=== PATIENT | male | born 1945 | race Caucasian/White ===

== ENCOUNTER 2017-05-02 20:11 | Inpatient (IN) | payer OTHER ==
[~2017-05-02] VITALS: Ht 170.2 cm; Wt 66.3 kg
--- NOTE | 2017-05-02 21:26 | DIAGNOSTIC IMAGING REPORT ---
PROCEDURE: XR CHEST 1 VIEW INDICATION: Altered level of consciousness. TECHNIQUE: Portable AP view (2114 hours). COMPARISON: None. FINDINGS: Findings suggest moderate hiatal hernia. Lungs are clear. Heart is normal. Thorax is normal. IMPRESSION: 1. Findings suggest moderate hiatal hernia. 2. Otherwise negative chest.
--- NOTE | 2017-05-02 22:47 | DIAGNOSTIC IMAGING REPORT ---
PROCEDURE: CT HEAD WITHOUT CONTRAST INDICATION: WEAKNESS TECHNIQUE: Noncontrast axial images with sagittal and coronal reformations. COMPARISON: None. FINDINGS: There is severe old small vessel disease of the white matter with an old 1.5 cm infarct in the right parietal lobe. Moderate atrophic changes. Brain and ventricles are otherwise normal. No evidence of an acute process or hemorrhage. Sinuses and mastoids are normal. Carotid and vertebral vascular calcifications IMPRESSION: 1. 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 2. There is a 2 cm old right parietal infarct. 3. Otherwise a head CT. 4. Findings discussed with Dr. bK Smallwood at [address] scans at this facility use dose modulation, iterative reconstruction, and/or weight-based dosing when appropriate to reduce radiation dose to as low as reasonably achievable.
--- NOTE | 2017-05-02 22:47 | DIAGNOSTIC IMAGING REPORT ---
PROCEDURE: CT HEAD WITHOUT CONTRAST INDICATION: WEAKNESS TECHNIQUE: Noncontrast axial images with sagittal and coronal reformations. COMPARISON: None. FINDINGS: There is severe old small vessel disease of the white matter with an old 1.5 cm infarct in the right parietal lobe. Moderate atrophic changes. Brain and ventricles are otherwise normal. No evidence of an acute process or hemorrhage. Sinuses and mastoids are normal. Carotid and vertebral vascular calcifications IMPRESSION: 1. 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 2. There is a 2 cm old right parietal infarct. 3. Otherwise a head CT. 4. Findings discussed with Dr. Kb Smallwood at [address] scans at this facility use dose modulation, iterative reconstruction, and/or weight-based dosing when appropriate to reduce radiation dose to as low as reasonably achievable.
--- NOTE | 2017-05-03 01:07 | ED ORDER SUMMARY ---
..... Patient: AGUEDA CARRION OrderSheet Merg[facility] With [facility] VisitID: [id number] [address] [place] [address] 71y, M Registration Date/Time: 05/02/2017 ORDER SHEET Weight: 80.7 kg (stated) Allergies: No Known Drug Allergy GENERAL ORDERS: Chest 1V Urgent (20:52 05/02/2017 Destinee SKAGGS) (Ack 20:54 LMuller) (21:53 LMuller) Sales Operations Coordinator (Continuous) (20:53 05/02/2017 Destinee SKAGGS) (20:57 MCook R.N.) Cardiac Panel Stat (:53 05/02/2017 Destinee SKAGGS) (Ack 20:54 LMuller) (20:54 LMuller) UA-Culture if indicated Urgent (20:53 05/02/2017 Destinee SKAGGS) (Ack 20:54 LMuller) (0:40 MCook R.N.) TSH Urgent (20:53 05/02/2017 Destinee SKAGGS) (Ack 20:54 LMuller) (20:54 LMuller) Urine Drug Screen Urgent (20:53 05/02/2017 Destinee SKAGGS) (Ack 20:54 LMuller) (0:40 MCook R.N.) Pulse oximeter (20:53 05/02/2017 Destinee SKAGGS) (20:57 MCook R.N.) EKG - ER Stat (20:53 05/02/2017 Destinee SKAGGS) (Ack 20:54 LMuller) (21:02 MCook R.N.) CT Head wo Cont Urgent (21:33 05/02/2017 Madelyn SKAGGS) (Ack 21:39 LMuller) (21:53 LMuller) Vitals - Orthostatic (22:43 05/02/2017 Madelyn SKAGGS) (23:26 MCook R.N.) MEDICATION ORDERS: IV FLUIDS: IV NS : initial bolus 500 mL (1000 mL/hr), then 150 mL/hr for 4h (NOW); Routine (20:52 05/02/2017 Destinee SKAGGS) (Ack 21:14 JQuivey R.NAbhinav) (21:21 Herman Kennedy) (Cancelled: Other23:12 Madelyn SKAGGS) IV NS : initial bolus 1000 mL (1000 mL/hr), then 1000 mL/hr for X2 (NOW); Urgent (23:12 05/02/2017 Madelyn SKAGGS) (23:27 Herman Kennedy) ORDER SHEET NOTES: [Electronically signed by Que Carrasco R.N. (04:10 05/03/2017)] [Electronically signed by Kb Smallwood MD (09:42 05/03/2017)] [Electronically locked/signed by Que Carrasco R.N. (04:10 05/03/2017)]
--- NOTE | 2017-05-03 01:07 | ED CLINICAL REPORT ---
Clinical Report - [facility] [address] [place] [address] 05/02/2017 20:12 Patient: AGUEDA CARRION Time Seen: 21:00. Arrived- By private vehicle. Historian- patient and son. History limited by confusion. Physical Exam limited by confusion. HISTORY OF PRESENT ILLNESS Chief Complaint: WEAKNESS. The patient has had new onset of generalized weakness. He has had difficulty walking. He has had a recent fall. This was associated with loss of consciousness. This started today and is still present. It was abrupt in onset and has been constant. The patient is usually alert, but disoriented to time and alert but confused and usually walks only with assistance. (patient has a history of a prior stroke with chronic left-sided weakness. He moved in with his son here in October from [place]. His son was gone for 2 nights and when he returned home in the middle of the night found his father on the bathroom floor. The patient reports that he had an accident, had bent over to clean that up and stumbled hitting his head. He thinks he may have lost consciousness but is not sure. His son is not certain how long the patient may have been on the floor. His son reports that normally the patient is able to ambulate with his assistance. However, since this event he says that the patient tends to fall backwards and lists to the right.). REVIEW OF SYSTEMS No chills, fever, sweats, calf pain or chest pain. No cough, difficulty breathing, pedal edema, palpitations or abdominal pain. No black stools, bloody stools, constipation, diarrhea or nausea. No vomiting or urinary problems. All systems otherwise negative, except as recorded above. PAST HISTORY ( PCP - none). Problems: CVA - Cerebrovascular Accident. Hypertension. Additional Surgeries: Nasal surgery. Medications: Atenolol 100 mg PO QD. Allergies: No Known Drug Allergy. SOCIAL HISTORY Smoker- current status unknown. Alcohol use. (rare - none for 6 months). He lives with a family member. Has good social support. FAMILY HISTORY Stroke in first-degree relative (mother); cancer in first-degree relative (father and sibling). ADDITIONAL NOTES The nursing notes have been reviewed. PHYSICAL EXAM Vital Signs: 05/02/2017 20:15 BP: 136/91. HR: 92. RR: 14. O2 saturation: 99%. Temp: 98.3 F. Pain level now: 0/10. Appearance: Alert. He is confused. Head: Head atraumatic. Eyes: Pupils equal, round and reactive to light. ENT: Pharynx normal. Neck: Normal inspection. Neck supple. CVS: Normal heart rate and rhythm. Heart sounds normal. Respiratory: No respiratory distress. Breath sounds normal. Abdomen: Soft and nontender. No organomegaly. Back: Normal inspection. No CVA tenderness. Skin: Skin warm and dry. Normal skin color. Normal skin turgor. Extremities: Bilateral mild pitting edema of the lower extremities. Extremities exhibit normal ROM. No calf tenderness. Neuro: Moderately altered mental status: confused. Moderate left-sided facial weakness. He has had weakness of the left arm (severe) and left leg (severe). LABS, X-RAYS, AND EKG EKG: Normal EKG. Rate: 82. Prior EKG unavailable. The study has been independently viewed by me. CT Head: A small infarction in the right parietal lobe is present (old). White matter disease is present. There is atrophy is present. The study was interpreted contemporaneously by me and discussed with the radiologist. Laboratory Tests: UA-Culture if indicated: (VEENA: 05/03/2017 00:40) ( MsgRcvd 05/03/2017 00:56) Final results Test Result Flag Units (Reference) URINE COLOR YELLOW URINE APPEARANCE CLEAR URINE GLUCOSE NEGATIVE (NEGATIVE) URINE BILIRUBIN NEGATIVE (NEGATIVE) URINE KETONE NEGATIVE (NEGATIVE) URINE SPECIFIC GRAVITY 1.025 (1.010-1.030) URINE PH 5.5 (5.0-8.0) URINE PROTEIN NEGATIVE (NEGATIVE) URINE UROBILINOGEN 0.2 EU/dL (0.2-1.0) URINE NITRITE NEGATIVE (NEGATIVE) URINE BLOOD NEGATIVE (NEGATIVE) URINE LEUK ESTERASE NEGATIVE (NEGATIVE) URINE RBC 0-1 rbc/hpf (0-1) URINE WBC 1-3 wbc/hpf (0-1) URINE EPITHELIAL CELLS 1-3 EPI/hpf (0-5) URINE BACTERIA MODERATE (2+ TO 3+) (NONE SEEN) URINE COMMENT CULTURE INDICATED URINE CULTURES ARE SET-UP BASED ON THE FOLLOWING CRITERIA:POSITIVE NITRITEPOSITIVE LEUKOCYTE ESTERASEGREATER THAN 10 WHITE BLOOD CELLSMODERATE (2+) OR GREATER BACTERIA Urine Drug Screen: (VEENA: 05/03/2017 00:40) ( [facility] [place] 05/03/2017 00:58) Final results Test Result Flag Units (Reference) AMPHETAMINE/METHAMPHETAMINE NEGATIVE (NEGATIVE) BARBITURATE NEGATIVE (NEGATIVE) BENZODIAZEPINE NEGATIVE (NEGATIVE) CANNABINOID NEGATIVE (NEGATIVE) COCAINE NEGATIVE (NEGATIVE) ECSTASY NEGATIVE (NEGATIVE) METHADONE NEGATIVE (NEGATIVE) OPIATE NEGATIVE (NEGATIVE) The urine drug screen is a qualitative screening test fordrug overdose and abuse. All screen results should beconsidered as presumptive.Drugs screened for are as follows:BenzodiazepinesCocaineAmphetamines/MetamphetaminesTHC (Tetrahydrocannabinol)OpiatesBarbituratesEcstasyMethadonePositive results are unconfirmed. For confirmation, notifythe lab for the specimen to be sent to the reference lab.All confirmations must be performed by a differentmethodology.The ingestion of natural herbal and plant productscontaining Ephedra/Ephedra metabolites can produce in urineone or more substances capable of cross reacting withamphetamine/methamphetamine immunoassays. These testsprovide a preliminary result only. A more specificalternative chemical method must be used to obtain aconfirmed analytical result. CBC w Diff: (VEENA: 05/02/2017 20:24) ( [facility] 05/02/2017 21:02) Final results Test Result Flag Units (Reference) WHITE BLOOD COUNT 12.3 H K/uL (4.5-11.5) RED BLOOD COUNT 4.95 M/uL (4.50-5.90) HEMOGLOBIN 13.5 gm/dL (13.5-17.5) HEMATOCRIT 41.0 % (41.0-53.0) MEAN CELL VOLUME 83 fL (80-100) MEAN CORPUSCULAR HGB 27 pg (26-34) MEAN CORPUSCULAR HGB CONC 33 g/dL (31-37) RED CELL DISTRIBUTION WIDTH 14.1 % (11.6-14.8) PLATELET COUNT 205 K/uL (150-400) NEUTROPHIL % 83.7 H % (50-75) LYMPH % 6.9 L % (25-40) MONO % 9.2 % (3-14) EOSINOPHIL % 0.1 % (0-4) BASOPHIL % 0.1 % (0-2) TSH: (VEENA: 05/02/2017 20:24) ( MsgRcvd 05/02/2017 21:29) Final results Test Result Flag Units (Reference) THYROID STIMULATING HORMONE 0.779 uIU/mL (0.30-3.74) CHEM 13 PANEL: (VEENA: 05/02/2017 20:24) ( [facility] 05/02/2017 22:36) Final results Test Result Flag Units (Reference) GLUCOSE 98 mg/dL (70-110) BUN 27 H mg/dL (7-18) CREATININE 1.3 mg/dL (0.6-1.3) Estimated GFR 57.51 mL/min Estimated GFR- >60 mL/min Note: Persistent reduction over 3 months in eGFR<60 mL/min/1.73 m2 defines CKD. Patients with eGFR values>=60 mL/min/1.73 m2 may also have CKD if evidence ofpersistent proteinuria. Additional information may be foundat www.kidney.org. SODIUM 140 mmol/L (136-145) POTASSIUM 4.6 mmol/L (3.5-5.1) CHLORIDE 103 mmol/L (98-107) CARBON DIOXIDE 30 mmol/L (21-32) CALCIUM 9.9 mg/dL (8.5-10.1) TOTAL PROTEIN 7.8 g/dL (6.4-8.2) ALBUMIN 3.6 g/dL (3.3-5.0) BILIRUBIN, TOTAL 0.5 mg/dL (0.0-1.0) ALKALINE PHOSPHATASE 116 U/L (46-116) AST (SGOT) 104 H U/L (15-37) ALT (SGPT) 37 U/L (12-78) MAGNESIUM 2.3 mg/dL (1.8-2.4) TROPONIN I <0.05 ng/mL (0.00-1.5) TROPONIN REFERENCE RANGE:<0.1 NEGATIVE0.1-1.5 INDETERMINANT>1.5 POSITIVE CPK 517 H U/L (24-260) CK-MB 46.0 H ng/mL (0.5-3.2) %CKMB 1.8 % (0.0-4.0) . PROGRESS AND PROCEDURES Discussed case with hospitalist, (Joyce - he saw the patient in the ER). Reviewed test results and need for additional work-up. Agreed upon treatment plan, need for patient follow-up and decision to admit. Patient/family counseled. Old medical records ordered. Old records unavailable. CLINICAL IMPRESSION Changed mental status. Leukocytosis (mild). Possible nontraumatic cerebrovascular accident. asymptomatic bacteruria. (Electronically signed by Kb Smallwood MD 05/03/2017 9:42)
--- NOTE | 2017-05-03 01:07 | ED ORDER SUMMARY ---
..... Patient: AGUEDA CARRION OrderSheet [facility] VisitID: [id number] [address] [place] [address] 71y, M Registration Date/Time: 05/02/2017 ORDER SHEET Weight: 80.7 kg (stated) Allergies: No Known Drug Allergy GENERAL ORDERS: Chest 1V Urgent (20:52 05/02/2017 Destinee SKAGGS) (Ack 20:54 LMuller) (21:53 LMuller) Manager Budget (Continuous) (20:53 05/02/2017 Destinee SKAGGS) (20:57 MCook R.N.) Cardiac Panel Stat (:53 05/02/2017 Destinee SKAGGS) (Ack 20:54 LMuller) (20:54 LMuller) UA-Culture if indicated Urgent (20:53 05/02/2017 Destinee SKAGGS) (Ack 20:54 LMuller) (0:40 MCook R.N.) TSH Urgent (20:53 05/02/2017 Destinee SKAGGS) (Ack 20:54 LMuller) (20:54 LMuller) Urine Drug Screen Urgent (20:53 05/02/2017 Destinee SKAGGS) (Ack 20:54 LMuller) (0:40 MCook R.N.) Pulse oximeter (20:53 05/02/2017 Destinee SKAGGS) (20:57 MCook R.N.) EKG - ER Stat (20:53 05/02/2017 Destinee SKAGGS) (Ack 20:54 LMuller) (21:02 MCook R.N.) CT Head wo Cont Urgent (21:33 05/02/2017 Madelyn SKAGGS) (Ack 21:39 LMuller) (21:53 LMuller) Vitals - Orthostatic (22:43 05/02/2017 Madelyn SKAGGS) (23:26 MCook R.N.) MEDICATION ORDERS: IV FLUIDS: IV NS : initial bolus 500 mL (1000 mL/hr), then 150 mL/hr for 4h (NOW); Routine (20:52 05/02/2017 Destinee SKAGGS) (Ack 21:14 JQuivey R.NAbhinav) (21:21 Herman Kennedy) (Cancelled: Other23:12 Madelyn SKAGGS) IV NS : initial bolus 1000 mL (1000 mL/hr), then 1000 mL/hr for X2 (NOW); Urgent (23:12 05/02/2017 Madelyn SKAGGS) (23:27 Herman Kennedy) ORDER SHEET NOTES: [Electronically signed by Que Carrasco R.N. (04:10 05/03/2017)] [Electronically signed by Kb Smallwood MD (09:42 05/03/2017)] [Electronically locked/signed by Que Carrasco R.N. (04:10 05/03/2017)]
--- NOTE | 2017-05-03 01:07 | ED NURSING NOTES ---
Clinical Report - Nurses [facility] [place] [address] 05/02/2017 20:12 Patient: AGUEDA CARRION TRIAGE Triage time 20:15 May 02 2017. Acuity: LEVEL 3. Chief Complaint: WEAKNESS and (Pt found down, last known well on Tuesday). Alert. No acute distress. PAT COMA SCORE: [place] Coma Scale: 14- eyes open spontaneously (4); best verbal response- disoriented (4); best motor response- obeys commands (6). --20:22 Jasper Pham R.N. 20:15 05/02/17. BP: 136/91. HR: 92. RR: 14. O2 saturation: 99% on nasal cannula at 2 liters/minute. Temp: 98.3 F. Pain level now: 0/10. --20:22 Jasper Pham R.N. Chief Complaint: WEAKNESS, DIFFICULTY STANDING and DIFFICULTY WALKING. --20:39 Jasper Pham R.N. Weight: 80.7 kg stated. Height/Length: 67 inches Per Patient. BMI: 27.9. --20:15 Jasper Pham R.N. Medications Atenolol 100 mg PO QD. --21:23 Jasper Pham R.N. Allergies No Known Drug Allergy. --20:18 Jasper Pham R.N. History <<STRICKEN ENTRY-- Arrived by EMS. Historian: EMS. Accompanied by (Son on the way). This started yesterday. Patient was last known well (Tuesday). ( Pt lives alone and his son (Maxi) checks on him periodically. Last night at 0130 AM Pt was found down on the ground, ALOC, unsure of what happened. Pt has since not recovered his baseline orientation status. Pt presents confused, weak, L-sided deficits in arm - Pt has hx of CVA.). PAST MEDICAL HX: Stroke. SOCIAL HX: No marijuana. Heavy tobacco smoker- 1 pack per day. Occasional alcohol use. No infectious disease exposure. ABUSE ASSESSMENT: No report of abuse. SELF HARM ASSESSMENT: A self harm assessment was performed. The patient answered "no" to the question "Do you have thoughts of harming or killing yourself?". FALL RISK ASSESSMENT: Fall risk assessment completed. No fall risk identified. NUTRITIONAL RISK ASSESSMENT: The nutritional risk assessment revealed no deficiencies. FUNCTIONAL ASSESSMENT: Functional assessment: no impairments noted. LEARNING NEEDS ASSESSMENT: The learning needs assessment revealed no barriers. SKIN INTEGRITY ASSESSMENT: Skin integrity risk assessment completed. No skin integrity risk identified. --20:22 Jasper Pham R.N. --END STRIKE>> updated info --20:37 Jasper Pham R.N. Arrived by EMS. Historian: son and EMS. This started today at 1330. ( Pt lives with his son. He normally ambulates independently, albeit slowly and with a walker. Pt's son states he has become increasingly slow and weak. This afternoon, son checked on Pt and he was in the bathroom, had been incontinent, and while trying to clean up he fell onto his L side. Pt sustained a small lac to his L brow. Pt presents today disoriented, weak, reporting some SOB with exertion, new swelling to BLE.). --20:39 Jasper Pham R.N. PAST MEDICAL HX: Stroke. Immunizations: status is unknown. SOCIAL HX: Heavy tobacco smoker (cigarette)- 1 pack per day. Occasional alcohol use. No drug use. No infectious disease exposure. ABUSE ASSESSMENT: No report of abuse. SELF HARM ASSESSMENT: A self harm assessment was performed. The patient answered "no" to the question "Are you here because you tried to hurt yourself?". FALL RISK ASSESSMENT: Fall risk assessment completed. No fall risk identified. NUTRITIONAL RISK ASSESSMENT: The nutritional risk assessment revealed no deficiencies. FUNCTIONAL ASSESSMENT: Functional assessment: no impairments noted. LEARNING NEEDS ASSESSMENT: The learning needs assessment revealed no barriers. SKIN INTEGRITY ASSESSMENT: Skin integrity risk assessment completed. No skin integrity risk identified. --20:40 Jasper Pham R.N. PROBLEMS: CVA - Cerebrovascular Accident. Hypertension. --20:19 Jasper Pham R.N. ADDITIONAL SURGERIES: Nasal surgery. --20:20 Jasper Pham R.N. Interventions ID band on patient. To treatment room. --20:22 Jasper Pham R.N. PHYSICAL ASSESSMENT To room via stretcher. GENERAL / NEURO / PSYCH: Awake. Alert. Appears in no acute distress. The patient is disoriented to time. Speech normal. Mood/affect normal. Strength is unequal; right preparer making department is greater than the left preparer making department and right foot push/pull is greater than the left foot push/pull. The patient has had weakness. HEENT: Pupils equal, round and reactive to light. RESPIRATORY: Breath sounds within normal limits. Respirations not labored. CVS: Normal sinus rhythm noted. SKIN: Skin is intact, warm and dry. --20:23 Jasper Pham R.N. NURSING PROGRESS NOTES The plan of care for this patient has been created. Monitoring of patient in place. Patient gowned. Head of bed elevated. Reassurance given. Two patient identifiers checked. Call light placed in reach. Side rails up x 2. Bed placed in lowest position. Patient ready for evaluation- ED physician notified. --20:23 Jasper Pham R.N. ( Waiting for son's arrival.). --20:24 Jasper Pham R.N. Finger stick glucose: 108 mg/dL; performed by nurse. --20:26 Jasper Pham R.N. ( Son at bedside, attempting to determine what medications Pt takes.). --20:30 Jasper Pham R.N. Patient ID band checked for patient name and birthdate: patient confirmed. Blood samples drawn from the right antecubital space peripheral IV site by nurse per protocol ; labeled in presence of the patient and sent to lab: rainbow set. Line flushed with 10 mL normal saline post blood draw. --20:30 Jasper Pham R.N. 20:47 05/02/2017 Site #1 started via IV in the right antecubital space with an 20g angiocath, with aseptic technique and good blood return; one attempt. Saline lock flushed with 10 mL saline. --21:02 Jasper Pham R.N. EKG time: (21:04). EKG was performed by a abilio and shown to the ED physician. --21:18 Keena Aguilar 21:11 05/02/2017 Started bag #1 1000 mL IV Fluids IV NS (Saline); bolus of 500 mL over 1 hour(s) via site #1 via IV pump. Allergies verified and confirmed 5 rights. IV patency established. IV site checked: no pain, redness, or swelling. IV flushed thoroughly pre- and post-medication administration. Completed per protocol. --21:21 Jasper Pham R.N. ( Attempted to obtain urine sample via clean catch and catheter, no sample obtained. IVFB infusing, will try again later. Pt is resting comfortably, VSS, family at bedside, denies needs.). --21:40 Jasper Pham R.N. 21:39 05/02/17. BP: 142/87. HR: 79. RR: 22. O2 saturation: 100% on nasal cannula at 2 liters/minute. --21:40 Jasper Pham R.N. ( Tried to obtain UA once more, Pt had no output, will continue to try. IVF infusing, VSS, Pt denies needs.). --22:16 Jasper Pham R.N. 22:16 05/02/17. HR: 80. RR: 22. O2 saturation: 93% on room air. --22:16 Jasper Pham R.N. 22:17 05/02/17. BP: 141/78. O2 saturation: 98% on nasal cannula at 2 liters/minute. --22:17 Jasper Pham R.N. 22:18 05/02/2017 IV Fluids IV NS via IV site #1 Rate Changed: bag #1 decreased to 150 mL/hr via IV pump. IV patency established. IV site checked: no pain, redness, or swelling. IV flushed thoroughly. Confirmed 5 Rights. --22:18 Jasper Pham R.N. 23:15 05/02/17. BP: 130/80 taken while lying. HR: 77. --23:26 Jasper Pham R.N. 23:05/02/17. BP: 130/82 taken while sitting. HR: 80. --23:26 Jasper Pham R.N. 23:05/02/17. BP: 140/89 taken while standing. HR: 87. --23:26 Jasper Pham R.N. 23:05/02/2017 Started bag #1 1000 mL IV Fluids IV NS (Saline); bolus of 1000 mL wide open via site #1 via IV pump. Allergies verified and confirmed 5 rights. IV patency established. IV site checked: no pain, redness, or swelling. IV flushed thoroughly pre- and post-medication administration. Completed per protocol. --23:26 Jasper Pham R.N. ( Checked orthostatic VS, new IVFB started, VSS, still no urine sample.). --23:27 Jasper Pham R.N. 00:41 05/03/2017 IV Fluids IV NS Bag Change: bag #1 infused. Total amount infused: 25666.63. STARTED bag #2 (1000 mL) at 1000 mL/hr via IV pump. IV patency established. IV site checked: no pain, redness, or swelling. IV flushed thoroughly. --00:41 Jasper Pham R.N. 00:41 05/03/17. BP: 150/93. HR: 79. RR: 19. O2 saturation: 97% on nasal cannula at 2 liters/minute. --00:42 Jasper Pham R.N. Patient ID band checked for patient name and birthdate: patient confirmed. Catheterized urine collected with return of yellow-colored urine, sediment noted; sample sent to lab for urinalysis and drug screen. Specimen labeled in the presence of the patient. --00:42 Jasper Pham R.N. Manager Beauty provided (catheterization). --00:50 Keena Aguilar ( Pt is going to be admitted, call placed to Pt's son, who went home earlier. Left a message regarding Pt's admission.). --01:37 Jasper Pham R.N. ( Pt's son returned call to unit, updated him about plan of care for Pt.). --01:39 Jasper Pham R.N. 01:55 05/03/2017 IV Fluids IV NS Bag Change: bag #2 infused. Total amount infused: 1000. STARTED bag #3 (1000 mL) at 1000 mL/hr via IV pump. Confirmed 5 rights. IV patency established. IV site checked: no pain, redness, or swelling. IV flushed thoroughly. --01:55 Jasper Pham R.N. 01:56 05/03/17. BP: 116/66. HR: 80. RR: 18. O2 saturation: 98% on nasal cannula at 2 liters/minute. --01:57 Jasper Pham R.N. 02:35 05/03/2017 IV Fluids IV NS Continued: upon admission at the rate of 1000 mL/hr. 300 mL remaining bag #3. IV patency established. IV site checked: no pain, redness, or swelling. IV flushed thoroughly. --02:35 Que Carrasco R.N. Intake & Output Urine: 300 mL, with return of marcelina-colored urine, sediment noted; odor is normal. --00:50 Keena Aguilar IV fluids: 2050 mL. --01:56 Jasper Pham R.N. DISPOSITION / DISCHARGE Report was given to a nurse via a phone call. Report included patient's care, treatment, medications, reviewed medication reconcilliation, and condition (including any recent changes or anticipated changes). All questions were answered. Report was acknowledged and care was transferred. (to MARYBETH Berman). --01:52 Jasper Pham R.N. Cardiac rhythm: sinus rhythm. Condition at departure: stable. No learning barriers present. Admitted to Acute Care. Patient's personal items include: upper denture, Other belongings; items were placed in belongings bag and transported with the patient. He did not have glasses, contacts or a hearing aid. FALL RISK ASSESSMENT: Fall risk assessment completed. No fall risk identified. --02:34 Que Carrasco R.N. 02:32 05/03/17. BP: 127/74. HR: 77. RR: 13. O2 saturation: 96%. Pain level now: 0/10. --02:34 Que Carrasco R.N. Departure time: 02:39. --02:39 Que Carrasco R.N. Locked/Released at 05/03/2017 4:10 by Que Carrasco R.N.
--- NOTE | 2017-05-03 02:10 | Progress Note ---
Subjective General Admission History and Physical Examination Patient Name: Rajan Hart Admission Date: May 03, 2017 Primary Care Provider: None Attending Physician: Eyal Ribeiro M.D. Admitting Physician: Mark Cook M.D. Code Status: FULL CODE Room: 202 Status: Observation, ACU SUBJECTIVE Historian: Patient Reliability: Poor Chief Complaint: Generalized weakness History of Present Illness: The patient is a 71-year-old single white male with a significant past make a history of cerebrovascular disease status post CVA with left-sided weakness, dementia, hypertension, gastroesophageal reflux, who presented to [facility] emergency department on the day of admission secondary to complaints of generalized weakness. The patient was apparently found down at his home by his son on returning home from work. The patient's history is confusing regarding this event and is unable to give us any significant history regarding the events prior to and after his fall at home. [facility] ER evaluation was consistent with generalized weakness, dehydration, UTI, and previous CVA with left-sided weakness. Secondary to the above, the patient was admitted by Mark Cook M.D. for further evaluation and treatment. PAST MEDICAL HISTORY Illnesses: 1. Cerebrovascular disease status post right-sided CVA with left-sided weakness 2. Hypertension 3. Gastroesophageal reflux 4. Dementia 5. Nicotine dependence-smoking Allergies: 1. No known drug allergies Medications: 1. Atenolol 100 mg by mouth daily Surgery: 1. Nose surgery-type unknown Injuries: 1. Left wrist fracture Hospitalizations: 1. For above surgery and medical problems FAMILY HISTORY Parents: 1. Father, , age unknown, lung cancer, 2. Mother, , age unknown, stroke Siblings: 1. Female, pleural, living, 84, healthy Children: 1. The patient has 2 male children both of which are in good health Other significant family history: None SOCIAL HISTORY 1. Marital Status: Single 2. Catholic: None 3. Education: 11th grade 4. Employment History: Support Associate, retired 5. Occupational health exposures: None 6. Residence: Currently lives with son. Not independent in ADLs. Requires walker for ambulation. HABITS 1. Tobacco: 60 pack years, smokes one pack per day 2. Drugs: None 3. Alcohol: None 4. Caffeine: 12 cans of soda per day HEALTH SUPERVISION Item/Test 1. No recent health maintenance IMMUNIZATIONS: 1. Pneumococcal: Unknown 2. Influenza: Unknown 3. Tetanus: Unknown ADVANCED DIRECTIVES: 1. Living well: No 2. POLST: No 3. Code Status: FULL CODE 4. Durable Power Door Trimmer Health care: No 5. Donor card: No REVIEW OF SYSTEMS Remarkable for those things stated in the history of present illness and past medical history. Seventeen point review of system completed with the following notable findings: General: Generalized weakness, left-sided weakness Gastrointestinal: Gastroesophageal reflux Neurological: Dementia, previous CVA, left-sided weakness, ambulation problems Physical Exam Vital Signs / I&Os Blood pressure: 150/93 mmHg Pulse: 79/minute Respiratory rate: 19/minute Temperature: 98.3 Fahrenheit orally Pulse oximetry: 97% 2 L/m nasal cannula General Appearance Alert, Cooperative, No acute distress HEENT Atraumatic, PERRLA, EOMI, Moist mucous membranes Lungs Clear to auscultation, Normal air movement Neck Supple, No JVD, No masses Cardiovascular Regular rate and rhythm, Normal S1 and S2, No murmurs, gallops, rubs Abdomen Normal bowel sounds, Soft, No tenderness, No guarding Extremities No cyanosis, No clubbing Neurological Normal speech, (L) sided weakness, confused Psych/Mental Status Mental status normal, Mood normal LAB Results Laboratory Tests 05/03 Chemistry Plasma Sodium (136 - 145 mmol/L) 140 Plasma Potassium (3.5 - 5.1 mmol/L) 4.6 Plasma Chloride (98 - 107 mmol/L) 103 CO2 (Enzymatic) (21 - 32 mmol/L) 30 BUN (7 - 18 mg/dL) 27 Creatinine (0.6 - 1.3 mg/dL) 1.3 Est GFR ( Amer) (mL/min) >60 Est GFR (Non-Af Amer) (mL/min) 57.51 Glucose (70 - 110 mg/dL) 98 Plasma Calcium (8.5 - 10.1 mg/dL) 9.9 Plasma Magnesium (1.8 - 2.4 mg/dL) 2.3 Total Bilirubin (0.0 - 1.0 mg/dL) 0.5 AST (15 - 37 U/L) 104 ALT (12 - 78 U/L) 37 Alkaline Phosphatase (46 - 116 U/L) 116 Creatine Kinase (24 - 260 U/L) 517 CK-MB (CK-2) (0.5 - 3.2 ng/mL) 46.0 CK/CKMB % Calc (0.0 - 4.0 %) 1.8 Troponin (0.00 - 1.5 ng/mL) <0.05 Total Protein (6.4 - 8.2 g/dL) 7.8 Albumin (3.3 - 5.0 g/dL) 3.6 TSH 3rd Generation (0.30 - 3.74 uIU/mL) 0.779 Hematology WBC (4.5 - 11.5 K/uL) 12.3 RBC (4.50 - 5.90 M/uL) 4.95 Hgb (13.5 - 17.5 gm/dL) 13.5 Hct (41.0 - 53.0 %) 41.0 MCV (80 - 100 fL) 83 MCH (26 - 34 pg) 27 RDW (11.6 - 14.8 %) 14.1 Neut % (Auto) (50 - 75 %) 83.7 Lymph % (Auto) (25 - 40 %) 6.9 [place] % (Auto) (3 - 14 %) 9.2 Eos % (Auto) (0 - 4 %) 0.1 Baso % (Auto) (0 - 2 %) 0.1 Plt Count, EDTA (150 - 400 K/uL) 205 PUBS MCHC (31 - 37 g/dL) 33 Toxicology Urine Opiates Screen (NEGATIVE) NEGATIVE Urine Methadone Screen (NEGATIVE) NEGATIVE Ur Barbiturates Screen (NEGATIVE) NEGATIVE U Amphetamin/Meth Scrn (NEGATIVE) NEGATIVE MDMA (Ecstasy) Screen (NEGATIVE) NEGATIVE U Benzodiazepines Scrn (NEGATIVE) NEGATIVE Urine Cocaine Screen (NEGATIVE) NEGATIVE U Cannabinoids Screen (NEGATIVE) NEGATIVE Urines Urine Color YELLOW Urine Appearance CLEAR Urine pH (5.0 - 8.0) 5.5 Ur Specific [place] (1.010 - 1.030) 1.025 Urine Protein (NEGATIVE) NEGATIVE Urine Ketones (NEGATIVE) NEGATIVE Urine Blood (NEGATIVE) NEGATIVE Urine Nitrite (NEGATIVE) NEGATIVE Urine Bilirubin (NEGATIVE) NEGATIVE Urine Urobilinogen (0.2 - 1.0 EU/dL) 0.2 Ur Leukocyte Esterase (NEGATIVE) NEGATIVE Urine RBC (0 - 1 rbc/hpf) 0-1 Urine WBC (0 - 1 wbc/hpf) 1-3 Ur Epithelial Cells (0 - 5 EPI/hpf) 1-3 Urine Bacteria (NONE SEEN) MODERATE (2+ TO 3+) Urine Glucose (NEGATIVE) NEGATIVE Urine Comment CULTURE INDICATED Microbiology Date/Time Procedure - Status Source Growth 05/03 0040 Urine Culture - RECD URINE CC Assessment and Plan Problem List 1. Rhabdomyolysis Status Acute Onset Date Unknown Plan -Patient presents with findings of rhabdomyolysis-mild. Most likely secondary to recent fall -IV fluid hydration -Monitor serial CPK/renal function 2. Prerenal azotemia Status Acute Onset Date Unknown Plan -Patient with findings of prerenal azotemia -IV fluid therapy -Monitor renal function 3. Cerebrovascular disease Status Chronic Onset Date Unknown Plan -Patient with findings of left-sided weakness consistent with previous CVA -CT scan shows no acute event -Aspirin 162 mg by mouth daily -Monitor -Physical therapy evaluation in a.m. -Probable assisted living placement post discharge 4. UTI (urinary tract infection) Status Acute Onset Date Unknown Plan -Patient with findings of UTI. Patient afebrile with minimal elevation of WBC at 12.3 -Rocephin 1 g IV daily -Urine C&S pending -Monitor 5. Hypertension Status Chronic Onset Date Unknown Plan -Patient with history of hypertension -Lopressor 25 mg by mouth every 8 hours -Monitor -Low-salt diet 6. Gastroesophageal reflux Status Chronic Onset Date Unknown Plan -Patient with history of gastroesophageal reflux -Persistent symptoms-mild -Protonix 40 mg IV daily switching to oral in the a.m. if stable -Monitor 7. Nicotine dependence Status Chronic Onset Date Unknown Plan -Patient with history of nicotine dependence-smoking -Smoking cessation education -NicoDerm patch 21 mg topically daily -Encourage smoking abstinence post discharge 8. Dementia Status Chronic Onset Date Unknown Plan -Patient with history of dementia-mild -CT scan obtained -TSH within normal limits -Check RPR Current status: Fair, unstable Anticipated discharge date: Anticipated discharge 1-2 days Anticipated discharge placement: Assisted living versus home with home health Patient care time: Time in chart review, patient interview, physical exam, CPOE, and care documentation: 70 mins Visit to patient today: 2 Complexity of care: Moderate-High DVT prophylaxis: Lovenox 40 mg subcutaneous daily E&M Codes Admission: [id number]-Comp/High/[id number]
[2017-05-03 02:52] VITALS: BP 140/93
[2017-05-03] MEDS ORDERED: ATENOLOL100 MG PO (05:03)
[2017-05-03 07:36] VITALS: BP 110/55
--- NOTE | 2017-05-03 07:46 | Progress Note ---
Subjective General ADVANCED CARE PLAN History of Present Illness The patient is a 71-year-old single white male with a significant past make a history of cerebrovascular disease status post CVA with left-sided weakness, dementia, hypertension, gastroesophageal reflux, who presented to [facility] emergency department on the day of admission secondary to complaints of generalized weakness. The patient was apparently found down at his home by his son on returning home from work. The patient's history is confusing regarding this event and is unable to give us any significant history regarding the events prior to and after his fall at home. [facility] ER evaluation was consistent with generalized weakness, dehydration, UTI, and previous CVA with left-sided weakness. Secondary to the above, the patient was admitted by Mrak Cook M.D. for further evaluation and treatment. For other history present illness, past medical history, family history, social history, review of systems, and admission physical examination please see the patient's history and physical examination and ER visit note in the patient's medical record. A discussion was undertaken with the patient regarding previous advance care arrangements/decisions. The following advanced directives were noted by the patient and discussed with me at the time of admission. ADVANCED DIRECTIVES: 1. Living well: None 2. POLST: None 3. CODE STATUS: FULL CODE 4. Durable Power Planning Management It Specialist Health care: None 5. Donor card: None The patient has expressed interest in pursuing full cardiovascular support at the time of cardiopulmonary arrest. The patient wishes to be placed on a FULL CODE status at this time The patient's wishes were documented in the chart and orders regarding the patient's wishes entered into the [employer] CPOE system. Approximately 18 minutes was spent in performing the above tasks and documentation of the patient's advanced care plan.
--- NOTE | 2017-05-03 07:46 | Progress Note ---
Subjective General ADVANCED CARE PLAN History of Present Illness The patient is a 71-year-old single white male with a significant past make a history of cerebrovascular disease status post CVA with left-sided weakness, dementia, hypertension, gastroesophageal reflux, who presented to [facility] emergency department on the day of admission secondary to complaints of generalized weakness. The patient was apparently found down at his home by his son on returning home from work. The patient's history is confusing regarding this event and is unable to give us any significant history regarding the events prior to and after his fall at home. [facility] ER evaluation was consistent with generalized weakness, dehydration, UTI, and previous CVA with left-sided weakness. Secondary to the above, the patient was admitted by Mark Cook M.D. for further evaluation and treatment. For other history present illness, past medical history, family history, social history, review of systems, and admission physical examination please see the patient's history and physical examination and ER visit note in the patient's medical record. A discussion was undertaken with the patient regarding previous advance care arrangements/decisions. The following advanced directives were noted by the patient and discussed with me at the time of admission. ADVANCED DIRECTIVES: 1. Living well: None 2. POLST: None 3. CODE STATUS: FULL CODE 4. Durable Power General Intern Health care: None 5. Donor card: None The patient has expressed interest in pursuing full cardiovascular support at the time of cardiopulmonary arrest. The patient wishes to be placed on a FULL CODE status at this time The patient's wishes were documented in the chart and orders regarding the patient's wishes entered into the [employer] CPOE system. Approximately 18 minutes was spent in performing the above tasks and documentation of the patient's advanced care plan.
--- NOTE | 2017-05-03 09:43 | ED MED RECONCILIATION SUMMARY ---
Patient: AGUEDA CARRION Medication Reconciliation Report [facility] VisitID: [id number] [address] [place] [address] 71y, M Registration Date/Time: 05/02/2017 Weight: 80.7 kg Height/Length: 67 in. BMI: 27.9 ALLERGIES: No Known Drug Allergy The patient's Home Medications are listed below: THE FOLLOWING MEDICATIONS NEED TO BE RECONCILED: Atenolol 100 mg PO QD The source(s) of the original Home Medication information: Not obtained. The following Medications were given to the patient in the Emergency Department: IV NS IV Fluids bolus 500 mL over 1 hour(s), administered: 05/02/2017 9:11:00 PM IV NS IV Fluids bolus 1000 mL wide open, administered: 05/02/2017 11:26:00 PM The following Medications were prescribed to the patient: None.
--- NOTE | 2017-05-03 09:43 | ED MAR SUMMARY ---
..... Medication Administration Record [facility] [address] [place] [address] Patient: AGUEDA CARRION Visit ID: [id number] 71y, M Weight: 80.7 kg Height/Length: 67 in BMI: 27.9 ALLERGIES: No Known Drug Allergy Start 21:11 05/02/2017 Jasper Pham RJossy. Medication Administered: IV NS (SALINE), Dose: IV Fluids, Bolus: 500 mL over 1 hour(s), Dispensed: 1000 mL bag, Site: #1 right AC. Medication Ordered: IV NS : initial bolus 500 mL (1000 mL/hr), then 150 mL/hr for 4h (NOW); Routine. Start 23:26 05/02/2017 Jasper Pham RJossy., Continued Upon Admission 02:35 05/03/2017 Que Carrasco, R.N. Medication Administered: IV NS (SALINE), Dose: IV Fluids, Bolus: 1000 mL wide open, Dispensed: 1000 mL bag, Site: #1 right AC. Medication Ordered: IV NS : initial bolus 1000 mL (1000 mL/hr), then 1000 mL/hr for X2 (NOW); Urgent.
--- NOTE | 2017-05-03 09:43 | ED DISCHARGE INSTRUCTIONS ---
Patient: AGUEDA CARRION General Instructions [facility] VisitID: [id number] [address] [place] [address] 71y, M Registration Date/Time: 05/02/2017 Changed mental status. Leukocytosis (mild). asymptomatic bacteruria. (Electronically signed by Kb Smallwood MD 05/03/2017 9:42)
--- NOTE | 2017-05-03 09:43 | ED MAR SUMMARY ---
..... Medication Administration Record [facility] [address] [place] [address] Patient: AGUEDA CARRION Visit ID: [id number] 71y, M Weight: 80.7 kg Height/Length: 67 in BMI: 27.9 ALLERGIES: No Known Drug Allergy Start 21:11 05/02/2017 Jasper Pham RJossy. Medication Administered: IV NS (SALINE), Dose: IV Fluids, Bolus: 500 mL over 1 hour(s), Dispensed: 1000 mL bag, Site: #1 right AC. Medication Ordered: IV NS : initial bolus 500 mL (1000 mL/hr), then 150 mL/hr for 4h (NOW); Routine. Start 23:26 05/02/2017 Jasper Pham RJossy., Continued Upon Admission 02:35 05/03/2017 Que Carrasco, R.N. Medication Administered: IV NS (SALINE), Dose: IV Fluids, Bolus: 1000 mL wide open, Dispensed: 1000 mL bag, Site: #1 right AC. Medication Ordered: IV NS : initial bolus 1000 mL (1000 mL/hr), then 1000 mL/hr for X2 (NOW); Urgent.
--- NOTE | 2017-05-03 09:43 | ED DISCHARGE INSTRUCTIONS ---
Patient: AGUEDA CARRION General Instructions [facility] VisitID: [id number] [address] [place] [address] 71y, M Registration Date/Time: 05/02/2017 Changed mental status. Leukocytosis (mild). asymptomatic bacteruria. (Electronically signed by Kb Smallwood MD 05/03/2017 9:42)
--- NOTE | 2017-05-03 09:43 | ED MED RECONCILIATION SUMMARY ---
Patient: AGUEDA CARRION Medication Reconciliation Report [facility] VisitID: [id number] [address] [place] [address] 71y, M Registration Date/Time: 05/02/2017 Weight: 80.7 kg Height/Length: 67 in. BMI: 27.9 ALLERGIES: No Known Drug Allergy The patient's Home Medications are listed below: THE FOLLOWING MEDICATIONS NEED TO BE RECONCILED: Atenolol 100 mg PO QD The source(s) of the original Home Medication information: Not obtained. The following Medications were given to the patient in the Emergency Department: IV NS IV Fluids bolus 500 mL over 1 hour(s), administered: 05/02/2017 9:11:00 PM IV NS IV Fluids bolus 1000 mL wide open, administered: 05/02/2017 11:26:00 PM The following Medications were prescribed to the patient: None.
[2017-05-03 11:22] VITALS: BP 130/86
[2017-05-03 14:04] VITALS: BP 105/77; BP 96/70
[2017-05-03 18:46] VITALS: BP 124/67
[2017-05-03 21:47] VITALS: BP 118/73
[2017-05-04 04:28] VITALS: BP 108/68
[2017-05-04 07:09] VITALS: BP 126/67
--- NOTE | 2017-05-04 07:41 | Progress Note ---
Subjective General The patient is a 71-year-old single white male with a significant past make a history of cerebrovascular disease status post CVA with left-sided weakness, dementia, hypertension, gastroesophageal reflux, who presented to [facility] emergency department on the day of admission secondary to complaints of generalized weakness. The patient was apparently found down at his home by his son on returning home from work. The patient's history is confusing regarding this event and is unable to give us any significant history regarding the events prior to and after his fall at home. [facility] ER evaluation was consistent with generalized weakness, dehydration, UTI, and previous CVA with left-sided weakness. Secondary to the above, the patient was admitted by Mark Cook M.D. for further evaluation and treatment. Still feels weak unable to walk to Bathroom without assistance, no fever or chills, no chest pain or dyspnea, no dysuria, no nausea or vomiting Review of system: Constitutional: Negative for fever or chills patient still feels very weak Respiratory: Negative for chest pain dyspnea GI: Negative for nausea or vomiting Urinary: Negative for dysuria Physical Exam Vital Signs / I&Os Vital Signs Date Time Temp Pulse Resp B/P Pulse O2 O2 Flow FiO2 Ox Delivery Rate 05/04 0709 97.9 712 20 126/67 94 Room Air 0.0 05/04 0428 98.2 60 20 108/68 96 Room Air 05/03 2147 97.9 67 22 118/73 94 Room Air 05/03 2049 Room Air 05/03 1846 98.1 60 16 124/67 97 Room Air 05/03 1404 97.7 67 20 105/77 97 Room Air 0.0 05/03 1122 97.5 59 21 130/86 98 Room Air 0.0 05/03 0947 95 05/03 0743 2.0 I&O 05/04 0000 05/03 1600 05/03 0800 Intake Total 485 660 500 Output Total 1345 400 469 Balance -860 260 31 General Appearance No acute distress Lungs Clear to auscultation Neck Supple Cardiovascular Regular rate and rhythm, Normal S1 and S2, No murmurs, gallops, rubs Abdomen Normal bowel sounds, Soft, No tenderness Extremities No edema Skin No Rashes Neurological Normal exam (weakness in left side) Psych/Mental Status Mental status normal LAB Results Laboratory Tests 05/03 1509 Chemistry Creatine Kinase (24 - 260 U/L) 1164 CK-MB (CK-2) (0.5 - 3.2 ng/mL) 19.5 CK/CKMB % Calc (0.0 - 4.0 %) 1.7 Assessment and Plan Problem List 1. Rhabdomyolysis Status Acute Onset Date Unknown Plan improving, CK is down, but not to normal yet, still too weak, should be ready to be discharged to [facility] 2. UTI (urinary tract infection) Status Acute Onset Date Unknown Plan continue abx 3. Prerenal azotemia Status Acute Onset Date Unknown Plan resolved 4. Hypertension Status Chronic Onset Date Unknown Plan controlled continue current meds
[2017-05-04 11:03] VITALS: BP 111/62
[2017-05-04 14:16] VITALS: BP 122/67
[2017-05-04 17:45] VITALS: BP 135/77
[2017-05-04 22:23] VITALS: BP 133/79
[2017-05-05 02:13] VITALS: BP 132/86
[2017-05-05 06:56] VITALS: BP 126/85
--- NOTE | 2017-05-05 07:18 | Progress Note ---
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 The patient was apparently found down at his home by his son on returning home from work. The patient's history is confusing regarding this event and is unable to give us any significant history regarding the events prior to and after his fall at home. [facility] ER evaluation was consistent with generalized weakness, dehydration, UTI, and previous CVA with left-sided weakness. Secondary to the above, the patient was admitted by Mark Cook M.D. for further evaluation and treatment. For other history present illness, past medical history, family history, social history, review of systems, and admission physical examination please see the patient's history and physical examination and ER visit note in the patient's medical record. Subjective: The patient states he is doing much better today. Persistent weakness but improved. Ambulate with assist. Await placement home versus adult home/ assisted living Patient requests: No specific requests at this time Medications and Allergies Medications Current Medications Sig/Oswaldo Start time Last Medication Dose Route Stop Time Status Admin Aspirin 162 MG DAILY 05/03 900 AC 05/04 PO 0836 Enoxaparin Sodium 40 MG DAILY 05/03 09 AC 05/04 SC 0836 Metoprolol Tartrate 25 MG Q8HR 05/03 600 AC 05/04 PO 2134 Pantoprazole Sodium 40 MG DAILY@05/03 0600 AC 05/05 IV 0614 Ceftriaxone Sodium/ 50 ML DAILY@05/03 0400 AC 05/04 Dextrose IV 0836 Acetaminophen 650 MG Q6H PRN 05/03 215 AC PO Al Hydrox/Mg Hydrox/ 15 ML Q1H PRN 05/03 215 AC Simethicone PO Atropine Sulfate 0.5 MG Q3MIN PRN 05/03 215 IV Dextrose/Sodium 1,000 ML ASDIRECTED 05/03 215 05/04 Chloride/Electrolyt IV 2134 Lidocaine HCl See Dose ONCE PRN 05/03 215 AC Insts (1) IV Magnesium Hydroxide 10 ML DAILY PRN 05/03 215 AC PO Morphine Sulfate 2 MG Q3M PRN 05/03 215 AC IV Nitroglycerin 0.4 MG Q5M PRN 05/03 215 AC SL Dose Instructions: (1)Lidocaine HCl: 1.5 MG/KG Allergies Coded Allergies: NKA (05/05/17) Reconcile Medications Scheduled Medications Atenolol (Atenolol 100 MG) 100 MG TAB 100 MG PO DAILY (Reported) Physical Exam Vital Signs / I&Os Vital Signs Date Time Temp Pulse Resp B/P Pulse O2 O2 Flow FiO2 Ox Delivery Rate 05/05 0656 97.9 49 20 126/85 94 Room Air 0.0 05/05 021 98.1 58 16 132/86 99 Room Air 0.0 05/05 0110 Room Air 05/04 2223 98.4 72 16 133/79 96 Room Air 0.0 05/04 1745 98.8 59 18 135/77 97 Room Air 05/04 1416 98.6 63 18 122/67 97 Room Air 0.0 05/04 1103 97.7 68 18 111/62 95 Room Air 0.0 05/04 0835 SITTING AT THE EDGE OF BE I&O 05/05 0000 05/04 1600 05/04 0800 Intake Total 830 1190 1069 Output Total 1866 1250 1850 [facility] -1036 60 -781 General Appearance Alert, Oriented X3, Cooperative, No acute distress Lungs Clear to auscultation, Normal air movement Cardiovascular Regular rate and rhythm, Normal S1 and S2 Abdomen Normal bowel sounds, Soft, No tenderness Extremities No cyanosis, No clubbing, No edema Neurological persistent left-sided weakness-unchanged Psych/Mental Status Mood normal LAB Results Laboratory Tests 05/05 05/05 05/05 05/05 0515 0515 0500 0500 Chemistry Plasma Sodium (136 - 145 mmol/L) 140 Cancelled Plasma Potassium (3.5 - 5.1 mmol/L) 4.4 Cancelled Plasma Chloride (98 - 107 mmol/L) 106 Cancelled CO2 (Enzymatic) (21 - 32 mmol/L) 27 Cancelled BUN (7 - 18 mg/dL) 14 Cancelled Creatinine (0.6 - 1.3 mg/dL) 0.9 Cancelled Est GFR ( Amer) (mL/min) >60 Cancelled Est GFR (Non-Af Amer) (mL/min) >60 Cancelled Glucose (70 - 110 mg/dL) 101 Cancelled Plasma Calcium (8.5 - 10.1 mg/dL) 8.6 Cancelled Iron (35 - 150 ug/dL) 45 TIBC (260 - 445 ug/dL) 197 Iron Saturation (15 - 50 %) 23 Total Bilirubin (0.0 - 1.0 mg/dL) 0.4 AST (15 - 37 U/L) 36 ALT (12 - 78 U/L) 30 Alkaline Phosphatase (46 - 116 U/L) 81 Creatine Kinase (24 - 260 U/L) 188 Cancelled Total Protein (6.4 - 8.2 g/dL) 5.8 Albumin (3.3 - 5.0 g/dL) 2.6 Vitamin B12 (211 - 946 pg/mL) 216 Folate (>3.0 ng/mL) 4.8 Hematology WBC (4.5 - 11.5 K/uL) 7.2 RBC (4.50 - 5.90 M/uL) 4.14 Hgb (13.5 - 17.5 gm/dL) 11.2 Hct (41.0 - 53.0 %) 34.5 MCV (80 - 100 fL) 83 MCH (26 - 34 pg) 27 RDW (11.6 - 14.8 %) 14.3 Neut % (Auto) (50 - 75 %) 64.4 Lymph % (Auto) (25 - 40 %) 19.0 [place] % (Auto) (3 - 14 %) 13.7 Eos % (Auto) (0 - 4 %) 2.7 Baso % (Auto) (0 - 2 %) 0.2 Plt Count, EDTA (150 - 400 K/uL) 176 PUBS MCHC (31 - 37 g/dL) 33 Assessment and Plan Problem List 1. Rhabdomyolysis Status Acute Onset Date Unknown Plan -Resolved -CPK 188 today 2. Prerenal azotemia Status Acute Onset Date Unknown Plan -Much improved -BUN/creatinine 14/0.9 -Monitor 3. Cerebrovascular disease Status Chronic Onset Date Unknown Plan -Stable -No focal deficits identified -Monitor 4. UTI (urinary tract infection) Status Acute Onset Date Unknown Plan -Admission UA suggestive of UTI -Urine C&S negative. -DC antimicrobials 5. Hypertension Status Chronic Onset Date Unknown Plan -Blood pressure well controlled -Blood pressure 126/85 mmHg -Low-salt diet -Continue Lopressor 25 mg by mouth every 8 hours -Monitor 6. Dementia Status Chronic Onset Date Unknown Plan -Stable -Mental status changes improved -No further evaluation -We'll work with DC planning for home placement versus [facility]/adult home/assisted living 7. Gastroesophageal reflux Status Chronic Onset Date Unknown Plan -Stable -No complaints at this time -Change IV to by mouth Protonix 40 mg by mouth daily 8. Nicotine dependence Status Chronic Onset Date Unknown Plan -Stable -Smoking cessation education -Encourage smoking abstinence post discharge -NicoDerm patch when necessary Current status: Fair, improved Anticipated discharge date: Anticipated discharge 24-48 hours Anticipated discharge placement: retirement facility/adult home Patient care time: Time in chart review, patient interview, physical exam, CPOE, and care documentation: 25 mins Visit to patient today: 1 Complexity of care: Moderate DVT prophylaxis: Lovenox 40 mg subcutaneous daily E&M Codes Rounding: Inpt-Moderate/[id number]
[2017-05-05 11:01] VITALS: BP 128/75
[2017-05-05 14:40] VITALS: BP 127/87
[2017-05-05 18:15] VITALS: BP 146/95
[2017-05-05 23:01] VITALS: BP 136/94
[2017-05-06 02:28] VITALS: BP 123/82
--- NOTE | 2017-05-06 06:23 | Progress Note ---
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 The patient was apparently found down at his home by his son on returning home from work. The patient's history is confusing regarding this event and is unable to give us any significant history regarding the events prior to and after his fall at home. [facility] ER evaluation was consistent with generalized weakness, dehydration, UTI, and previous CVA with left-sided weakness. Secondary to the above, the patient was admitted by Mark Cook M.D. for further evaluation and treatment. For other history present illness, past medical history, family history, social history, review of systems, and admission physical examination please see the patient's history and physical examination and ER visit note in the patient's medical record. Subjective: The patient states he is doing well and ready for discharge. He voices no complaints at this time. Eating well. Ambulation improved. Patient requests: None Medications and Allergies Medications Current Medications Sig/Oswaldo Start time Last Medication Dose Route Stop Time Status Admin Pantoprazole Sodium 40 MG DAILY@0600 05/06 0600 AC 05/06 Sesquihydrate PO 0600 Metoprolol Tartrate 25 MG BID 05/05 2100 AC 05/05 PO 2049 Aspirin 162 MG DAILY 05/03 0900 AC 05/05 PO 0855 Enoxaparin Sodium 40 MG DAILY 05/03 0900 AC 05/05 SC 0855 Acetaminophen 650 MG Q6H PRN 05/03 215 AC PO Al Hydrox/Mg Hydrox/ 15 ML Q1H PRN 05/03 215 AC Simethicone PO Atropine Sulfate 0.5 MG Q3MIN PRN 05/03 215 AC IV Dextrose/Sodium 1,000 ML ASDIRECTED 05/03 215 05/06 Chloride/Electrolyt IV 0326 Lidocaine HCl See Dose ONCE PRN 05/03 215 AC Insts (1) IV Magnesium Hydroxide 10 ML DAILY PRN 05/03 215 AC PO Morphine Sulfate 2 MG Q3M PRN 05/03 215 AC IV Nitroglycerin 0.4 MG Q5M PRN 05/03 215 AC SL Dose Instructions: (1)Lidocaine HCl: 1.5 MG/KG Allergies Coded Allergies: NKA (05/05/17) Reconcile Medications Scheduled Medications Aspirin (Aspirin EC Low Dose 81 MG) 81 MG TAB 162 MG PO DAILY Metoprolol Tartrate (Lopressor 25 MG) 25 MG TAB 25 MG PO BID Pantoprazole Sodium (Pantoprazole Sodium 40 MG) 40 MG TAB 40 MG PO DAILY@0600 Discontinued Medications Atenolol (Atenolol 100 MG) 100 MG TAB 100 MG PO DAILY (Reported) Discontinued reason: Duplicate Entry Physical Exam Vital Signs / I&Os Vital Signs Date Time Temp Pulse Resp B/P Pulse O2 O2 Flow FiO2 Ox Delivery Rate 05/06 0228 98.1 73 18 123/82 94 Room Air 05/06 0015 Room Air 05/05 2301 97.7 70 18 136/94 95 Room Air 05/05 1815 97.9 70 18 146/95 100 Room Air 05/05 1600 Room Air 0.0 05/05 1440 98.2 69 18 127/87 99 Room Air 05/05 1101 98.2 68 20 128/75 94 Room Air 0.0 05/05 0902 Room Air 0.0 05/05 0656 97.9 49 20 126/85 94 Room Air 0.0 I&O 05/06 0000 05/05 1600 05/05 0800 Intake Total 480 1905 1821 Output Total 1280 1700 1593 Balance -800 205 228 General Appearance Alert, Cooperative, No acute distress Lungs Clear to auscultation Cardiovascular Regular rate and rhythm, Normal S1 and S2 Abdomen Normal bowel sounds, Soft, No tenderness Extremities No cyanosis, No clubbing, No edema Neurological Left-sided weakness. Psych/Mental Status Mental status normal, Mood normal Assessment and Plan Problem List 1. Rhabdomyolysis Status Acute Onset Date Unknown Plan -Resolved. 2. Prerenal azotemia Status Acute Onset Date Unknown Plan -Resolved. 3. Cerebrovascular disease Status Chronic Onset Date Unknown Plan -Stable -Continue aspirin 160 mg by mouth daily -Discharged to [facility] and rehabilitation for ongoing rehabilitative services 4. Hypertension Status Chronic Onset Date Unknown Plan -Well-controlled on Lopressor 25 mg by mouth twice a day -Low-salt diet -Monitor 5. Dementia Status Chronic Onset Date Unknown Plan -Stable -Mild-moderate -No further evaluation. -Outpatient follow-up with PCP/facility attending 6. Gastroesophageal reflux Status Chronic Onset Date Unknown Plan -Stable -Protonix 40 mg by mouth daily 7. Nicotine dependence Status Chronic Onset Date Unknown Plan -Patient with history of nicotine dependence-smoking -Smoking cessation education -Encourage patient to follow a smoking abstinence program post discharge Current status: Fair, improved Anticipated discharge date: Today Anticipated discharge placement: nursing home facility Patient care time: Time in chart review, patient interview, physical exam, CPOE, and care documentation: Greater than 30 mins Visit to patient today: 1 Complexity of care: Moderate DVT prophylaxis: Lovenox For other recommendations regarding discharge diet, activity, followup, and discharge medications please see the patient's discharge instructions. Greater than 30 min. was spent in the patient's discharge preparation including discharge interview and physical examination, progress note, discharge instructions, and discharge summary E&M Codes Discharge: Inpt >30 min spent/[id number]
[2017-05-06 06:53] VITALS: BP 121/79
[2017-05-06] MEDS ORDERED: LOPRESSOR25 MG PO (08:52)
[2017-05-06] MEDS ORDERED: ASPIRIN EC LOW81 MG PO (08:52)
[2017-05-06] MEDS ORDERED: PANTOPRAZOLE SO40 MG PO (08:54)
--- NOTE | 2017-05-06 08:54 | Provider's Discharge Care Plan ---
Problem, Goal, Plan Problem List 1. Hypertension Goals: Improve disease control, Prevent disease progress Instructions: Follow up as directed, Take meds as directed, Avoid processed foods, Low salt diet 2. Cerebrovascular disease Goals: Improve disease control, Prevent disease progress Instructions: Follow up as directed, Take meds as directed, Avoid processed foods 3. Nicotine dependence Goals: Improve disease control, Prevent disease progress Instructions: Stop smoking 4. Gastroesophageal reflux Goals: Improve disease control, Prevent disease progress Instructions: Follow up as directed, Take meds as directed
--- NOTE | 2017-05-06 08:58 | Discharge Summary ---
Discharge Summary Report Admit Date 05/03/17 Discharge Date 05/06/17 Admission Diagnosis 1. Rhabdomyolysis 2. Prerenal azotemia 3. Cerebrovascular disease 4. UTI 5. Hypertension 6. Gastroesophageal reflux 7. Nicotine dependence-smoking 8. Dementia Discharge Diagnosis 1. Rhabdomyolysis-resolved 2. Prerenal azotemia-resolved 3. Cerebrovascular disease 4. Dementia 5. Hypertension 6. Gastroesophageal reflux 7. Nicotine dependence-smoking 8. 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 The patient was apparently found down at his home by his son on returning home from work. The patient's history is confusing regarding this event and is unable to give us any significant history regarding the events prior to and after his fall at home. [facility] ER evaluation was consistent with generalized weakness, dehydration, UTI, and previous CVA with left-sided weakness. Secondary to the above, the patient was admitted by Mark Cook M.D. for further evaluation and treatment. For other history present illness, past medical history, family history, social history, review of systems, and admission physical examination please see the patient's history and physical examination and ER visit note in the patient's medical record. Hospital Course The following problems and their management were noted during the patient's hospitalization: 1. Rhabdomyolysis-resolved The patient presented with findings of rhabdomyolysis status post fall. This resolved during the patient's hospital stay with IV fluid support. 2. Prerenal azotemia-resolved The patient presented with findings of prerenal azotemia/dehydration. This resolved during the patient's hospital stay with adequate by mouth intake and IV fluid therapy. 3. Cerebrovascular disease The patient has a history of cerebrovascular disease status post right-sided CVA with left-sided weakness. There were no new neurological deficits identified during the patient's hospitalization. He had persistent left-sided weakness throughout his hospital stay. He underwent physical therapy evaluation and was deemed the patient should undergo further rehabilitation at a long term facility. This does was much improved the time of discharge with improved strength but he had persistent problems with ambulation. The patient will be transferred to [facility] and rehabilitation for ongoing rehabilitative treatment. 4. Dementia Stable. No further evaluation undertaken. 5. Hypertension Well-controlled. Blood pressure 121/79 on day of discharge. Low-salt diet. Continue Lopressor 25 mg by mouth twice a day. 6. Gastroesophageal reflux Stable. Not problematic throughout the patient's hospitalization. Protonix 40 mg by mouth daily. 7. Nicotine dependence-smoking The patient has a long-standing history of nicotine dependence-smoking. No smoking while during the patient's hospital stay. He was encouraged to follow a smoking abstinence program post discharge. 8. UTI-ruled out The patient was admitted with urinalysis suggestive of UTI. Subsequent urine C& S was negative for infection. No further evaluation. Discharge Instructions/Meds For other recommendations regarding discharge diet, activity, followup, and discharge medications please see the patient's discharge instructions. Discharge condition: Fair, improved Greater than 30 min. was spent in the patient's discharge preparation including discharge interview and physical examination, progress note, discharge instructions, and discharge summary The patient was interviewed and examined on the day of discharge. E&M Codes Discharge: Inpt >30 min spent/[id number]
--- NOTE | 2017-05-06 08:58 | Discharge Summary ---
Discharge Summary Report Admit Date 05/03/17 Discharge Date 05/06/17 Admission Diagnosis 1. Rhabdomyolysis 2. Prerenal azotemia 3. Cerebrovascular disease 4. UTI 5. Hypertension 6. Gastroesophageal reflux 7. Nicotine dependence-smoking 8. Dementia Discharge Diagnosis 1. Rhabdomyolysis-resolved 2. Prerenal azotemia-resolved 3. Cerebrovascular disease 4. Dementia 5. Hypertension 6. Gastroesophageal reflux 7. Nicotine dependence-smoking 8. 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 The patient was apparently found down at his home by his son on returning home from work. The patient's history is confusing regarding this event and is unable to give us any significant history regarding the events prior to and after his fall at home. [facility] ER evaluation was consistent with generalized weakness, dehydration, UTI, and previous CVA with left-sided weakness. Secondary to the above, the patient was admitted by Mark Cook M.D. for further evaluation and treatment. For other history present illness, past medical history, family history, social history, review of systems, and admission physical examination please see the patient's history and physical examination and ER visit note in the patient's medical record. Hospital Course The following problems and their management were noted during the patient's hospitalization: 1. Rhabdomyolysis-resolved The patient presented with findings of rhabdomyolysis status post fall. This resolved during the patient's hospital stay with IV fluid support. 2. Prerenal azotemia-resolved The patient presented with findings of prerenal azotemia/dehydration. This resolved during the patient's hospital stay with adequate by mouth intake and IV fluid therapy. 3. Cerebrovascular disease The patient has a history of cerebrovascular disease status post right-sided CVA with left-sided weakness. There were no new neurological deficits identified during the patient's hospitalization. He had persistent left-sided weakness throughout his hospital stay. He underwent physical therapy evaluation and was deemed the patient should undergo further rehabilitation at a alf facility. This does was much improved the time of discharge with improved strength but he had persistent problems with ambulation. The patient will be transferred to [facility] and rehabilitation for ongoing rehabilitative treatment. 4. Dementia Stable. No further evaluation undertaken. 5. Hypertension Well-controlled. Blood pressure 121/79 on day of discharge. Low-salt diet. Continue Lopressor 25 mg by mouth twice a day. 6. Gastroesophageal reflux Stable. Not problematic throughout the patient's hospitalization. Protonix 40 mg by mouth daily. 7. Nicotine dependence-smoking The patient has a long-standing history of nicotine dependence-smoking. No smoking while during the patient's hospital stay. He was encouraged to follow a smoking abstinence program post discharge. 8. UTI-ruled out The patient was admitted with urinalysis suggestive of UTI. Subsequent urine C& S was negative for infection. No further evaluation. Discharge Instructions/Meds For other recommendations regarding discharge diet, activity, followup, and discharge medications please see the patient's discharge instructions. Discharge condition: Fair, improved Greater than 30 min. was spent in the patient's discharge preparation including discharge interview and physical examination, progress note, discharge instructions, and discharge summary The patient was interviewed and examined on the day of discharge. E&M Codes Discharge: Inpt >30 min spent/[id number]
[2017-05-06 10:36] VITALS: BP 116/74
== END 2017-05-06 11:10 | DRG 558 ==
LOC: ED SRH 20:11 → TRANS SRH 05-03 01:27 → ACUTE2 SRH 05-03 03:38
PROVIDERS: ADMIT Internal Medicine
DX: M62.82 Rhabdomyolysis (principal); R39.2 Extrarenal uremia; I69.954 Hemiplegia and hemiparesis following unspecified cerebrovascular disease affecting left non-dominant side; F03.90 Unspecified dementia, unspecified severity, without behavioral disturbance, psychotic disturbance, mood disturbance, and anxiety; I10 Essential (primary) hypertension; K21.9 Gastro-esophageal reflux disease without esophagitis; F17.210 Nicotine dependence, cigarettes, uncomplicated; Z91.81 History of falling
CPT/HCPCS: 82956; 85241; 85244; 90004; 90074; 90098; 90100; 90469; 90616; 90617; 91504; 91505; 92610; 92668; 92670; 92720; 92760; 92761; 92762; 92763; 92764; 92765; 92766; 92767; 93140; 95059